=== PATIENT | female | born 2000 | race Caucasian/White ===

== ENCOUNTER 2021-07-12 19:49 | Emergency (ER) | payer SELFPAY ==
[2021-07-12 20:02] VITALS: BP 141/76; PULSE 99; RESP 16; TEMP 36.6; O2SAT 100
[2021-07-12 20:03] VITALS: BP 141/76; PULSE 99; RESP 16; TEMP 36.6; O2SAT 100
--- NOTE | 2021-07-12 20:03 | ED.URI ---
HPI - URI/Sore Throat General Chief Complaint: Upper Respiratory Infection Stated Complaint: Sore throat Time Seen by Provider: 07/12/21 19:58 Source: patient, RN notes reviewed and old records reviewed History of Present Illness HPI Narrative: 20 year old female [facility] to [facility] care with 2 day history of acute sore throat with painful swallowing, denies any fever chills or sweats. Patient denies any cough no sinus congestion no headache or any ear pain. She is here visiting from out of town with family members has had a history of previous strep infections. She states she was eating supper tonight and it hurts so bad to swallow she was in tears. Family members brought her to clinic patient has no identification on her or her insurance info. Respirations even and nonlabored with no tachypnea, SAO2 100% on room air with no difficulty with her breathing. Related Data Allergies Allergy/AdvReac Type Severity Reaction Status Date / Time No Known Allergies Allergy Verified 07/12/21 20:01 Review of Systems Review of Systems: CONSTITUTIONAL: Denies fever, chills, or sweats. EYES: Denies visual changes, redness, or discharge. ENT: Denies rhinorrhea, congestion, positive sore throat, no otalgia, painful swallowing CARDIOVASCULAR: Denies chest pain, palpitations, or edema. RESPIRATORY: Denies cough or dyspnea. GASTROINTESTINAL: Denies abdominal pain, nausea, vomiting, or diarrhea. GENITOURINARY: Denies dysuria or hematuria. SKIN: Denies rash or itching. MUSCULOSKELETAL: Denies back pain, joint pain, or myalgia. NEUROLOGIC: Denies headache, numbness, or weakness. PSYCHIATRIC: Denies anxiety or depression. All systems reviewed & are unremarkable except as noted in HPI and below PMFSH Past Medical History Medical History (Updated 07/13/21 @ 09:51 by Vandana Mcclelland NP) Strep pharyngitis Surgical History Surgical History (Updated 07/12/21 @ 20:13 by Vandana Mcclelland NP) No history of previous surgery Family History Family History (Updated 07/12/21 @ 20:12 by Vandana Mcclelland NP) Father Hypertension Grandparent Diabetes mellitus Social History Social History (Updated 07/12/21 @ 20:12 by Vandana Mcclelland NP) Smoking status: Never smoker Alcohol intake: never Substance use: never Living arrangements: alone Gender identity (if verbalized by the patient): Female Comments At time of signature, agree with nursing past medical, surgical, social and family history. There is no relevant family history pertinent to the presenting complaint Exam Narrative: GENERAL: Ill-appearing, well-nourished, and in no acute distress. HEAD: Normocephalic, atraumatic. EYES: PERRLA and EOMI. ENT: Nares clear, no rhinorrhea or epistaxis. Mucous membranes moist.TM's normal with good light reflex. throat red with right tonsil red excoriated with white exudates, left tonsil with exudates. NECK: Supple. lymphadenopathy CHEST: Clear to auscultation. No respiratory distress.SAO2 100% on room air HEART: Regular rate and rhythm. No murmur heard. Normal peripheral pulses. ABDOMEN: Soft, nontender, nondistended, normal active bowel sounds. EXTREMITIES: Normal range of motion. No edema. SKIN: Warm, dry, no rash. NEURO: No focal deficits. Alert and oriented x3. Course Course Level of Care: Express Care Visit Vital Signs Vital signs: Vital Signs Temperature 36.6 C 07/12/21 20:02 Pulse Rate 99 07/12/21 20:02 Respiratory Rate 16 07/12/21 20:02 Blood Pressure 141/76 H 07/12/21 20:02 Pulse Oximetry 100 07/12/21 20:02 Temperature 36.6 C 07/12/21 20:03 Pulse Rate 99 07/12/21 20:03 Respiratory Rate 16 07/12/21 20:03 Blood Pressure 141/76 H 07/12/21 20:03 Pulse Oximetry 100 07/12/21 20:03 MDM - URI/Sore Throat Differential Diagnosis Differential diagnosis: Likely upper respiratory infection, sinusitis, viral infection, influenza, pharyngitis and other (tonsillitis) Medical Records Attestation:
== END 2021-07-12 20:11 | disposition home or self-care (01) ==
PROVIDERS: Emergency Provider Registered Nurse
DX: J03.90 Acute tonsillitis, unspecified (principal)
CPT/HCPCS: 87081; 87880; 99213; G0463